=== PATIENT | female | born 1940 | race Caucasian/White ===

== ENCOUNTER 2016-05-07 23:38 | Emergency (ER) | payer MEDICARE, OTHER ==
[~2016-05-07] VITALS: Ht 160 cm; Wt 64.5 kg
[~2016-05-07 23:38] MED LIST: AMIT25TA PO; CHOL500011 PO; CLON2TAB PO; GABA600T2 PO; GABA800T PO; HCTZ25 PO; METO100T PO; METO50TA PO; RESTASIS EYE OU; SYN.15T2 PO; TRAM-69 PO; ZES20T PO; [UNRECOGNIZED DRUG - CODE] PO
[2016-05-07 23:47] VITALS: BP 131/40; PULSE 56; RESP 14; O2SAT 97
--- NOTE | 2016-05-08 | ED.REPORT ---
HPI-Hip/Pelvis Prob/Inj Date of Service May 08, 2016 ED Provider: Dr. Rodney Bennett M.D. A 75 year old female with a medical history including hypertension, head tremor , and thyroid cancer s/p left thyroidectomy presents to the ED with right hip pain after a mechanical ground level fall just prior to arrival. The patient denies head trauma, loss of consciousness, numbness, weakness, or other symptoms. She takes ASA daily. EMS found the patient with a BP of 114/70 and otherwise normal vital signs. She was given 8mg morphine en route. Nursing Notes Stated Complaint: GLF/RIGHT HIP PAIN Chief Complaint: Multiple Trauma/Fall Nursing Notes Reviewed: Yes Allergies: Coded Allergies: codeine (Verified Allergy, GI UPSET, 10/22/12) vancomycin (Verified Adverse Reaction, 10/22/12) Uncoded Allergies: ADHESIVE TAPES (Allergy, Intermediate, Skin blisters off., 10/01/11) Scheduled ([Restasis Eye Drops]) 1 DROP OU BID Amitriptyline-Expunged Drug, Do Not Renew! (Amitriptyline-Expunged Drug, Do Not Renew!) 25 Mg Tablet 25 MG PO HS Cholecalciferol-Expunged Drug, Do Not Renew! (Vitamin D3-Expunged Drug, Do Not Renew!) 5,000 Unit Tablet 5,000 UNIT PO DAILY ClonazePAM-Expunged Drug, Do Not Renew! (ClonazePAM-Expunged Drug, Do Not Renew! ) 2 Mg Tablet 2 MG PO HS Gabapentin-Expunged Drug, Do Not Renew! (Gabapentin-Expunged Drug, Do Not Renew! ) 600 Mg Tablet 600 MG PO BIDBL Gabapentin-Expunged Drug, Do Not Renew! (Neurontin-Expunged Drug, Do Not Renew! ) 800 Mg Tablet 1,200 MG PO HS HCTZ-Expunged Drug, Do Not Renew! (Hydrodiuril-Expunged Drug, Do Not Renew!) 25 Mg Tablet 25 MG PO AM Levothyroxine-Expunged Drug, Do Not Renew! (Synthroid-Expunged Drug, Do Not Renew!) 150 Mcg Tablet 150 MCG PO DAILYAC 0.15 MG = 150 MCG Lisinopril-Expunged Drug, Do Not Renew! (Lisinopril-Expunged Drug, Do Not Renew! ) 20 Mg Tablet 40 MG PO DAILY Metoprolol Tart-Expunged Drug, Do Not Renew! (Metoprolol Tart-Expunged Drug, Do Not Renew!) 100 Mg Tablet 100 MG PO QAM Metoprolol Tart-Expunged Drug, Do Not Renew! (Metoprolol Tart-Expunged Drug, Do Not Renew!) 50 Mg Tablet 50 MG PO QPM Primidone-Expunged Drug, Do Not Renew! (Mysoline-Expunged Drug, Do Not Renew!) 50 Mg Tab 100 MG PO QID Tramadol Hcl-Expunged Drug, Do Not Renew! (Ultram-Expunged Drug, Do Not Renew!) 50 Mg Tablet 50 MG PO Q6H As needed for Mild Pain General Time Seen by Provider: 00:00 Chief Complaint Hip injury right Hx Obtained From: Patient Arrived By: Ambulance Onset Occurred: Just prior to arrival Symptom Duration: Since onset Caused by: Accidental, Fall on ground Location: Hip, R lateral aspect Quality: Painful Severity: Current: Moderate Severity: Maximum: Moderate Associated with: Denies: Numbness, Weakness Pertinent Negative: Relieved by nothing Immunizations: Tetanus up to date Recent Healthcare: No recent doctor visit Past Medical History Past Medical History Notes: Past Medical History Hypertension Head tremor Ureterolithiasis UTI Thyroid cancer s/p left thyroidectomy Past Surgical History Hysterectomy Bilateral oophorectomy Left thyroidectomy L4-5 fusion in 1973. Cholecystectomy. C-sections. Tonsillectomy Adenoidectomy L4-5 lumbar decompression February 2003. T10 to ilium fusion 03/2011 due to severe scoliosis complicated by postop infection. Smoking History Never Smoker Ambulatory Status Independent Review of Systems Review of Systems Note: - Head trauma Constitutional: Denies: Fever Musculoskeletal: Reports: Joint pain (Right hip) Neurologic: Denies: Change LOC, Numbness, Weakness Complete sys rev & neg: except as marked. Respiratory: Denies: Non-productive cough, Shortness of breath GI: Denies: Diarrhea, Vomiting Physical Exam Initial Vital Signs Vital Signs (First) Date Time Temp Pulse Resp B/P Pulse Ox O2 Delivery O2 Flow Rate FiO2 05/07/16 23:47 36.5 56 14 131/40 97 Room Air Initial VS: Reviewed Head / Eyes: Atraumatic, Normocephalic Respiratory: Breath sounds normal, Clear to auscultation, No respiratory distress Cardiovascular: Regular rate & rhythm, Heart sounds normal Skin: Warm, Dry, No cyanosis Psychiatric: Mood/affect normal, Behavior normal, Normal thought content Lower Extremity / Pelvis / MS: Inspection NL, Full range of motion, No deformity, Neurologic intact, Vascular intact Right Hip: Positive: Tenderness present..., Negative: Leg externally rotated, Leg shortened General/Constitutional: Awake, No acute distress Alertness: Positive: Sedated Neurologic Neurologic: Oriented X3, Speech NL Mental Status: Positive: Pharmacologically sedated ENT: Airway patent Mouth: Positive: Mucous membranes dry Interpretation & Diagnostics CT HIPS W/O CONTRAST: CONCLUSION: No acute osseous pathology involving the right hip. Extensive postoperative changes in the lower lumbar spine from a posterior laminectomy/ fusion. Transmitted to ED by Radiologist Monty Starks M.D at 05/08/2016 - 2:14:26 AM PDT Lab Results Interpretation Result Diagram: 05/08/1612905/08/16 013 Test 05/08/16 01:30 White Blood Count 5.2th/mm3 (3.8-10.1) Red Blood Count 2.99mil/mm3 (3.90-5.20) Hemoglobin 10.0g/dL (12.0-15.6) Hematocrit 31.2% (35.0-46.0) Mean Corpuscular Volume 104.3fL (81-100) Mean Corpuscular Hemoglobin 33.4pg (27.0-35.0) Mean Corpuscular Hemoglobin Concent 32.1% (32.0-37.0) Red Cell Distribution Width 12.3% (12.3-15.4) Platelet Count 188bil/L (150-400) Neutrophils (%) (Auto) 47.7% (40-74) Lymphocytes (%) (Auto) 35.7% (14-46) Monocytes (%) (Auto) 10.4% (4-12) Eosinophils (%) (Auto) 5.2% (0-5) Basophils (%) (Auto) 0.8% (0-3) Prothrombin Time 10.3sec (8.1-12.5) Prothromb Time International Ratio 0.96ratio Activated Partial Thromboplast Time 25.7sec (22.8-33.0) Sodium Level 138mEq/L (134-144) Potassium Level 4.7mEq/L (3.5-5.2) Chloride Level 100mEq/L (97-108) Carbon Dioxide Level 28mmol/L (18-29) Blood Urea Nitrogen 35mg/dL (8-27) Creatinine 1.43mg/dL (0.57-1.00) Estimat Glomerular Filtration Rate 51mL/min (>59) Glucose Level 94mg/dL (60-99) Calcium Level 8.7mg/dL (8.5-10.1) Magnesium Level 3.4mg/dL (1.6-2.6) Total Bilirubin 0.2mg/dL (0.0-1.2) Aspartate Amino Transf (AST/SGOT) 20U/L (0-50) Alanine Aminotransferase (ALT/SGPT) 15U/L (0-32) Alkaline Phosphatase 96U/L (25-165) Troponin T 0.010ug/L (0.0-0.011) Total Protein 6.1g/dL (6.4-8.4) Albumin 3.6g/dL (3.4-5.0) ECG Interpretation ECG Interpretation: Sinus rhythm rate 54 Time: 00:51 Interpreted by: ED physician X-Ray Chest Interpretation Chest Xray Interpretation: Interstitial fibrosis markings in apices, apparently chronic Old fracture left fourth rib View: Portable, 1 view Interpretation / Wet Read by: Wet read ED physician X-Ray Interpretation Xray Interpretation: No obvious fracture X-Ray Ordered: Pelvis, Hip right Interpretation / Wet Read by: Wet read ED physician Re-Eval/Medical Decision Med Decision/Clinical Course 75-year-old status post mechanical fall favoring her right hip. X-ray and CT are negative. She received morphine en route and has remained somewhat sedated. She is slowly been clearing that it is now able to navigate. She is bearing weight without apparent difficulty. Discharged now in stable condition. No apparent head injury, nor any other injury. Not on blood thinners apart from aspirin. Source of Hx: Old records Re-Evaluation/Progress : Time of Eval: 06:02 Patient Status: Condition improved Re-Evaluation/Progress Note: Discussed with patient x-ray, CT, and lab results, diagnosis, and plan for discharge. Follow-up and return to the ER instructions given. Patient agrees with plan for care and all questions were addressed. Counseled Regarding: Diagnosis, Lab results, Need for follow-up, When/why to return to ED Discharge & Departure Shift Change Sign-Out Response to Therapy: Improved Impression: Primary Impression: Hip pain Laterality: right Qualified Code: M25.551 - Pain in right hip Additional Impression: Fall Encounter type: initial encounter Qualified Code: W19.XXXA - Unspecified fall, initial encounter Disposition: Home Discharge Condition All VS Reviewed: Yes Condition: Improved Patient Instructions: Contusions in Adults (ED), Fall Prevention for Older Adults (GEN) Additional Instructions: Use your walker to avoid falls. Follow-up with your doctor in the office. Call your doctor this morning Extra strength Tylenol as needed for pain. Return if any immediate issues. Referrals: Armand Monzon MD (PCP) Carlie Kent MD Attestation Portions of this note were transcribed by Phoebe Pena. I, Dr. Bennett, personally performed the history, physical exam, and medical decision-making; I reviewed and confirmed the accuracy of the information in the transcribed note. Signed by: Romina Fitzgerald, 05/08/2016, 06:05 copies to: Carlie Kent MD; Armand Monzon MD, Christopher W MD May 08, 2016 00:00 PHOEBE PENA May 08, 2016 00:10
[2016-05-08 01:42] LABS: BASOPHILS % (AUTO) 0.8 % (0-3); EOSINOPHILS % (AUTO) 5.2 % (0-5); MONOCYTES % (AUTO) 10.4 % (4-12); Mean Corpuscular Hemoglobin 33.4 pg (27.0-35.0); Mean Corpuscular Volume 104.3 fL (81-100); NEUTROPHILS % (AUTO) 47.7 % (40-74); Platelet Count 188 bil/L (150-400)
[2016-05-08 02:08] LABS: INR 0.96 ratio
[2016-05-08 02:14] LABS: TROPONIN T 0.01 ug/L (0.0-0.011)
[2016-05-08 02:25] LABS: Magnesium 3.4 mg/dL (1.6-2.6)
[2016-05-08 03:00] VITALS: BP 132/50; PULSE 60; RESP 16; O2SAT 96
[2016-05-08 06:23] VITALS: BP 136/56; PULSE 64; RESP 16; O2SAT 98
--- NOTE | 2016-05-08 08:47 | DRSVH ---
PROCEDURE: X-RAY CHEST ONE VIEW, PORTABLE ([id number]) INDICATIONS: fall, rt hip deformity TECHNIQUE: One view of the chest was acquired. COMPARISON: [facility], , CHEST 1VW (PORTABLE), 10/21/2013, 8:47. FINDINGS: Surgical changes and devices: Thoracolumbar fixation hardware incompletely visualized. Right upper q uadrant surgical clip. Lungs and pleura: No pleural effusions or pneumothorax. Lungs are clear, interstitium is prominent. Mediastinum: Mediastinal contours appear normal. Heart size is normal. Bones and chest wall: No suspicious bony lesions. Overlying soft tissues appear unremarkable. IMPRESSION: Interstitium prominent otherwise lungs are clear. Dictated by: Philip Gamboa RRA Interpreted: Elva Wesley MD on 05/08/2016 at 8:46 Transcribed by: ERIC on 05/08/2016 at 8:46 Approved by: Elva Wesley MD, PhD on 05/08/2016 at 16:30
--- NOTE | 2016-05-08 09:25 | DRSVH ---
PROCEDURE: CT HIP RIGHT W/O CONTRAST ([id number]) INDICATIONS: fall, pain TECHNIQUE: Noncontrast 3 mm axial sections acquired through the bony pelvis. Additional 3 mm axial sections acq uired through the symptomatic hip joint, with coronal and sagittal reformats. COMPARISON: [facility], CR, XR PELVIS W LATERAL HIP RT, 05/08/2016, 0:16. FINDINGS: Image quality: Excellent. Bones: No fracture or dislocation. There is mild degenerative joint disease in hips and sacroiliac jeanna ints bilaterally. Post surgical changes noted in lower lumbar spine. Soft tissues: There is vascular calcification involving distal aorta and common iliac arteries consis tent with atherosclerosis. Featureless bowel loops are normal. Bladder is normal. IMPRESSION: No fractures or dislocation. No significant discrepancy with the operations supervisor 2nd shift radiology preliminary report. Dictated by: Carlos Grullon M.D. on 05/08/2016 at 9:22 Transcribed by: SERGIO on 05/08/2016 at 9:24 Approved by: Carlos Grullon M.D. on 05/08/2016 at 11:19
--- NOTE | 2016-05-08 09:32 | DRSVH ---
PROCEDURE: X-RAY PELVIS W/LAT HIP (RT) ([id number]) INDICATIONS: fall, rt hip deformity TECHNIQUE: AP pelvis with lateral view(s) of the right hip(s). COMPARISON: [facility], CT, CT HIP RT WO CON, 05/08/2016, 1:44. FINDINGS: Bones: No fractures or dislocations. Pelvic ring appears intact. No suspicious bony lesions. Fixa tion hardware within the lumbosacral spine incompletely visualized. Diffuse osteopenia. Soft tissues: The visualized bowel gas pattern is normal. No suspicious soft tissue calcifications. IMPRESSION: No displaced fracture seen. If there is continued pain, followup exam or additional nina ging such as MRI or CT could be performed for further assessment. Dictated by: Philip Gamboa RRA Interpreted: Elva Wesley MD on 05/08/2016 at 9:28 Transcribed by: ERIC on 05/08/2016 at 9:31 Approved by: Elva Wesley MD, PhD on 05/08/2016 at 16:30
== END 2016-05-08 07:01 | disposition home or self-care (01) ==
LOC: SED 23:38
DX: M25.551 Pain in right hip (principal); W19.XXXA Unspecified fall, initial encounter; Y93.9 Activity, unspecified; Y92.9 Unspecified place or not applicable; Y99.9 Unspecified external cause status; I10 Essential (primary) hypertension; Z85.850 Personal history of malignant neoplasm of thyroid; Z86.39 Personal history of other endocrine, nutritional and metabolic disease; Z90.710 Acquired absence of both cervix and uterus; Z88.1 Allergy status to other antibiotic agents; Z88.5 Allergy status to narcotic agent

== ENCOUNTER 2016-10-23 13:40 | Emergency (ER) | payer MEDICARE, OTHER ==
[~2016-10-23] VITALS: Ht 160 cm; Wt 63.6 kg
[2016-10-23 13:56] VITALS: BP 157/59; RESP 16; O2SAT 98
--- NOTE | 2016-10-23 14:00 | ED.REPORT ---
HPI-Trauma Minor / Fall Date of Service Oct 23, 2016 ED Provider: Jacob Rowe MD Patient is a 75 year old female with a history of hypertension and thyroid cancer who presents to the ED via EMS after a ground level fall. She complains of head pain and back pain. Patient denies neck pain. The patient reports that she was using her walker when she suddenly woke up on the floor in extreme pain. She does not recall what happened. En route, per EMS, the patient had another episode where she became unconscious for approximately 60 seconds. The patient states that she has been having multiple falls with her last fall a couple days ago per her . Nursing Notes Stated Complaint: GROUND LEVEL FALL Chief Complaint: Head, Face, Neck Trauma Nursing Notes Reviewed: Yes Allergies: Coded Allergies: codeine (Verified Allergy, Unknown, GI UPSET, 10/23/16) vancomycin (Verified Adverse Reaction, Unknown, 10/23/16) Uncoded Allergies: ADHESIVE TAPES (Allergy, Intermediate, Skin blisters off., 10/01/11) Scheduled ([Restasis Eye Drops]) 1 DROP OU BID Amitriptyline-Expunged Drug, Do Not Renew! (Amitriptyline-Expunged Drug, Do Not Renew!) 25 Mg Tablet 25 MG PO HS Cholecalciferol-Expunged Drug, Do Not Renew! (Vitamin D3-Expunged Drug, Do Not Renew!) 5,000 Unit Tablet 5,000 UNIT PO DAILY ClonazePAM-Expunged Drug, Do Not Renew! (ClonazePAM-Expunged Drug, Do Not Renew! ) 2 Mg Tablet 2 MG PO HS Gabapentin-Expunged Drug, Do Not Renew! (Gabapentin-Expunged Drug, Do Not Renew! ) 600 Mg Tablet 600 MG PO BIDBL Gabapentin-Expunged Drug, Do Not Renew! (Neurontin-Expunged Drug, Do Not Renew! ) 800 Mg Tablet 1,200 MG PO HS HCTZ-Expunged Drug, Do Not Renew! (Hydrodiuril-Expunged Drug, Do Not Renew!) 25 Mg Tablet 25 MG PO AM Levothyroxine-Expunged Drug, Do Not Renew! (Synthroid-Expunged Drug, Do Not Renew!) 150 Mcg Tablet 150 MCG PO DAILYAC 0.15 MG = 150 MCG Lisinopril-Expunged Drug, Do Not Renew! (Lisinopril-Expunged Drug, Do Not Renew! ) 20 Mg Tablet 40 MG PO DAILY Metoprolol Tart-Expunged Drug, Do Not Renew! (Metoprolol Tart-Expunged Drug, Do Not Renew!) 100 Mg Tablet 100 MG PO QAM Metoprolol Tart-Expunged Drug, Do Not Renew! (Metoprolol Tart-Expunged Drug, Do Not Renew!) 50 Mg Tablet 50 MG PO QPM Primidone-Expunged Drug, Do Not Renew! (Mysoline-Expunged Drug, Do Not Renew!) 50 Mg Tab 100 MG PO QID Tramadol Hcl-Expunged Drug, Do Not Renew! (Ultram-Expunged Drug, Do Not Renew!) 50 Mg Tablet 50 MG PO Q6H As needed for Mild Pain General Time Seen by MD: 13:57 Chief Complaint Fall Hx Obtained From: Patient Arrived By: Ambulance Onset Occurred: Just prior to arrival Symptom Duration: Since onset Caused by: Fall on ground Location: Back Head Quality: Painful Severity: Current: Moderate Recent Healthcare: Recent doctor visit Similar Sx Previous: Yes Past Medical History Past Medical History Notes: Past Medical History cervical dystonia Ureterolithiasis UTI Thyroid cancer s/p left thyroidectomy "leaky aorta valve" Reports: Hypertension Past Surgical History Bilateral oophorectomy Left thyroidectomy L4-5 fusion in 1973. Adenoidectomy L4-5 lumbar decompression February 2003. T10 to ilium fusion 03/2011 due to severe scoliosis complicated by postop infection. Reports: , Cholecystectomy, Hysterectomy, Tonsillectomy Smoking History Never Smoker Ambulatory Status Independent Review of Systems Constitutional: Denies: Chills, Fever Respiratory: Denies: Non-productive cough, Shortness of breath Musculoskeletal: Reports: Back pain, Denies: Neck pain Skin: Denies Itching, Denies Rash Neurologic: Reports: Change LOC, Headache Complete sys rev & neg: except as marked. Physical Exam Initial Vital Signs Vital Signs (First) Date Time Temp Pulse Resp B/P Pulse Ox O2 Delivery O2 Flow Rate FiO2 10/23/16 13:56 36.6 16 157/59 98 10/23/16 16:15 74 Room Air Initial VS: Reviewed General/Constitutional: Awake, Alert Neck: Atraumatic, Supple Head / Eyes: Atraumatic, Normocephalic, PERRL, EOMI Respiratory / Chest: Atraumatic, Breath sounds NL, Breath sounds = bilat, No respiratory distress Cardiovascular: Heart rate NL, Regular rhythm, Heart sounds NL Abdomen: Atraumatic, Soft, Non-tender Back: Atraumatic, No midline vertebral tend multiple well healed surgical scars diffusely tender Lower Extremity / Pelvis / MS: Atraumatic, Full range of motion 1+ edema Skin: Atraumatic, Color NL, No rash, Warm, Dry Neurologic: Oriented X3, Speech NL Psychiatric: Affect NL, Mood NL Interpretation & Diagnostics Lab Results Interpretation Result Diagram: 10/23/16 1400 10/23/16 1400 Test 10/23/16 14:00 10/23/16 14:22 White Blood Count 3.6th/mm3 (3.8-10.1) Red Blood Count 3.32mil/mm3 (3.90-5.20) Hemoglobin 11.3g/dL (12.0-15.6) Hematocrit 33.2% (35.0-46.0) Mean Corpuscular Volume 100.0fL (81-100) Mean Corpuscular Hemoglobin 34.0pg (27.0-35.0) Mean Corpuscular Hemoglobin Concent 34.0% (32.0-37.0) Red Cell Distribution Width 11.9% (12.3-15.4) Platelet Count 156bil/L (150-400) Neutrophils (%) (Auto) 56.1% (40-74) Lymphocytes (%) (Auto) 26.7% (14-46) Monocytes (%) (Auto) 11.0% (4-12) Eosinophils (%) (Auto) 5.1% (0-5) Basophils (%) (Auto) 1.1% (0-3) Sodium Level 141mEq/L (134-144) Potassium Level 4.1mEq/L (3.5-5.2) Chloride Level 100mEq/L (97-108) Carbon Dioxide Level 25mmol/L (18-29) Blood Urea Nitrogen 31mg/dL (8-27) Creatinine 1.20mg/dL (0.57-1.00) Estimat Glomerular Filtration Rate 62mL/min (>59) Glucose Level 123mg/dL (60-99) Calcium Level 10.2mg/dL (8.5-10.1) Total Bilirubin 0.3mg/dL (0.0-1.2) Aspartate Amino Transf (AST/SGOT) 24U/L (0-50) Alanine Aminotransferase (ALT/SGPT) 22U/L (0-32) Alkaline Phosphatase 74U/L (25-165) Total Protein 7.1g/dL (6.4-8.4) Albumin 3.9g/dL (3.4-5.0) Urine Color Yellow (YELLOW) Urine Appearance Clear (CLEAR,HAZY) Urine pH 5.5 (5.0-8.0) Urine Specific [place] 1.010 (1.003-1.035) Urine Protein Negativemg/dL (NEG,TRACE) Urine Glucose (UA) Negativemg/dL (NEGATIVE) Urine Ketones Negativemg/dL (NEGATIVE) Urine Occult Blood Negative (NEGATIVE) Urine Nitrite Negative (NEGATIVE) Urine Bilirubin Negative (NEGATIVE) Urine Urobilinogen Normalmg/dL (NORMAL) Urine Leukocyte Esterase Negative (NEGATIVE) Urine RBC 0-2/hpf (0-2) Urine WBC 0-5/hpf (0-5) Urine Epithelial Cells Few/hpf (NONE-MOD) Urine Crystals None seen (NONE SEEN) Urine Bacteria Few/hpf (NONE-FEW) Urine Hyaline Casts 5/20/lpf (NONE) Urine Granular Casts None seen (NONE SEEN) Urine Waxy Casts None seen (NONE SEEN) Urine Red Blood Cell Casts None seen (NONE SEEN) Urine White Blood Cell Casts None seen (NONE SEEN) Urine Mucus None seen (None Seen) Urine Trichomonas None seen (NONE SEEN) Urine Yeast None (NONE SEEN) Urinalysis Comment None Urine Culture Reflexed Not indicated ECG Interpretation ECG Interpretation: borderline prolonged TN interval probable left ventricular hypertrophy Time: 15:02 Interpreted by: ED physician Normal ECG Interpretation: Normal rate (57), Normal sinus rhythm X-Ray Interpretation Xray Interpretation: IMPRESSION: 1. Osteopenia and extensive post surgical changes redemonstrated. No definite acute fracture Dictated by: Sanchez Valentin M.D. on 10/23/2016 at 17:08 Study Performed: 2 or 3 view, Lumbar spine Interpretation / Wet Read by: Interpret - Radiologist CT Head Interpretation IMPRESSION: 1. No definite acute intracranial abnormality. Dictated by: Sanchez Valentin M.D. on 10/23/2016 at 14:52 Approved by: Sanchez Valentin M.D. on 10/23/2016 at 14:53 Interpretation / Wet Read by: Interpret - Radiologist Re-Eval/Medical Decision Med Decision/Clinical Course Thorough evaluation reveals no acute etiology for her abnormal symptoms today. The episode of decreased consciousness was completely resolved as I laid my hands on the sides of her head she became completely alert which was moderately confusing as to the source of her decreased level of consciousness. No other abnormality was discovered. No injuries were discovered. I believe that outpatient follow-up is appropriate for now. Re-Evaluation/Progress #1: Time of Eval: 15:22 Re-Evaluation/Progress Note: Patient reports that she is feeling slightly improved. Re-Evaluation/Progress #2: Time of Eval: 17:26 Re-Evaluation/Progress Note: Pt rechecked. Informed pt of x-ray results and concern for pt's frequent falls. Expressed need for pt to discuss with her pcp regarding her frequent falls. Informed pt of plan for discharge. Pt understands and agrees with plan for discharge. F/U instructions and RTER warnings given. All questions addressed. Counseled Regarding: Diagnosis, Lab results, Need for follow-up, When/why to return to ED Discharge & Departure Impression: Primary Impression: Fall Encounter type: initial encounter Qualified Code: W19.XXXA - Unspecified fall, initial encounter Additional Impression: Syncope Disposition: Home Discharge Condition All VS Reviewed: Yes Condition: Stable Patient Instructions: Fall Prevention for Older Adults (DC), Syncope (ED) Additional Instructions: No new dangerous condition or injury is discovered today. I am very concerned about your risk for repeated falls. I am very concerned about the fact that you have gone intermittently unconscious. I recommend close outpatient follow- up for further evaluation and possible physical therapy assessment. Referrals: Carlie Kent MD (PCP) Scribe Attestation Portions of this note were transcribed by Luisa Dumont and Cristina Coto. I, Dr. Rowe personally performed the history, physical exam and medical decision-making; I reviewed and confirmed the accuracy of the information in the transcribed note. Signed by: Luisa Dumont and Romina Saha, 10/23/16 copies to: Carlie Kent MD, Kirk H MD Oct 23, 2016 14:00 Jazmine Dumont Oct 23, 2016 14:06 Cristina Sotne Oct 23, 2016 16:07
[2016-10-23 14:17] LABS: BASOPHILS % (AUTO) 1.1 % (0-3); EOSINOPHILS % (AUTO) 5.1 % (0-5); NEUTROPHILS % (AUTO) 56.1 % (40-74); Platelet Count 156 bil/L (150-400)
[2016-10-23 14:55] LABS: APPEARANCE,URINE CLEAR (CLEAR,HAZY); COLOR,URINE YELLOW (YELLOW); OCCULT BLOOD,URINE NEGATIVE (NEGATIVE); PH,URINE 5.5 (5.0-8.0)
--- NOTE | 2016-10-23 14:55 | DRSVH ---
PROCEDURE: CT BRAIN WITHOUT CONTRAST ([id number]) INDICATIONS: trauma TECHNIQUE: Noncontrast 4.5 mm thick angled axial sections acquired from the foramen magnum to the vertex, with c oronal reformats. COMPARISON: 05/06/15. FINDINGS: Image quality: There is mild motion artifact. CSF spaces: Basal cisterns are patent. No extra-axial fluid collections. The ventricles are symmet rosemarie in size and shape. There is mild cerebral volume loss, with resultant ventricular and sulcal pro minence. Brain: No intracranial hemorrhage, mass, or mass effect. There are subcortical, periventricular and deep white matter hypodensities consistent with mild chronic small vessel ischemic changes. There i s intracranial internal carotid artery atherosclerosis. Skull and face: Calvarium and visualized facial bones appear intact, without suspicious lesions. Sinuses: Visualized sinuses and mastoids are clear. IMPRESSION: 1. No definite acute intracranial abnormality. Dictated by: Sanchez Valentin M.D. on 10/23/2016 at 14:52 Approved by: Sanchez Valentin M.D. on 10/23/2016 at 14:53
[2016-10-23 14:56] LABS: UROBILINOGEN,URINE NORMAL (NORMAL)
[2016-10-23 16:15] VITALS: BP 146/50; PULSE 74; RESP 18; O2SAT 98
--- NOTE | 2016-10-23 17:13 | DRSVH ---
PROCEDURE: X-RAY LUMBAR SPINE, 2 OR 3 VIEW INDICATIONS: trauma TECHNIQUE: 3 views of the lumbar spine were acquired. COMPARISON: X-rays of the thoracic and lumbar spine 11/12/12. FINDINGS: Bones: 5 [id number] vertebrae are present. There is marked osteopenia limiting evaluation. Ext ensive postsurgical changes are redemonstrated status post posterior fixation from T9-L1. The surgic al hardware appears intact. Alignment appears unchanged. There is a mild anterior wedged deformity of the T8 vertebral body which appears unchanged from the prior study. There is extensive facet arth ropathy in the lower lumbar spine and sequelae of surgical bone grafting. No definite acute fracture s. Soft tissues: Overlying bowel gas pattern is normal. There are extensive vascular calcifications. IMPRESSION: 1. Osteopenia and extensive post surgical changes redemonstrated. No definite acute fracture Dictated by: Sanchez Valentin M.D. on 10/23/2016 at 17:08 Approved by: Sanchez Valentin M.D. on 10/23/2016 at 17:12
[2016-10-23 18:16] VITALS: BP 138/62; PULSE 64; RESP 16; O2SAT 98
== END 2016-10-23 18:14 | disposition home or self-care (01) ==
LOC: SED 13:40 → EDBD 13:40 → SED 18:14
DX: R55 Syncope and collapse (principal); W18.39XA Other fall on same level, initial encounter; Y93.89 Activity, other specified; Y92.009 Unspecified place in unspecified non-institutional (private) residence as the place of occurrence of the external cause; Y99.8 Other external cause status; I10 Essential (primary) hypertension; Z85.850 Personal history of malignant neoplasm of thyroid; Z90.710 Acquired absence of both cervix and uterus; Z88.1 Allergy status to other antibiotic agents; Z88.5 Allergy status to narcotic agent